=== PATIENT | male | born 1955 | race African-American/Black ===

== ENCOUNTER 2017-02-04 14:39 | Emergency (ER) | payer MEDICARE, OTHER ==
[~2017-02-04] VITALS: Ht 185.4 cm; Wt 108.0 kg
[2017-02-04] MEDS ORDERED: AMLODIPINE BESYL5 MG ORAL (14:57)
[2017-02-04] MEDS ORDERED: [UNRECOGNIZED DRUG - OTHER] (14:57)
[2017-02-04] MEDS ORDERED: Norco 7.5mg/325mg tab ORAL ONE (15:30)
--- NOTE | 2017-02-04 16:13 | Emergency Room Report ---
History of Present Illness General Chief Complaint: Lower Extremity Injury Source: Patient Present Illness HPI 61-year-old male presents to the emergency department complaining of 10 out of 10 in severity right knee pain, swelling and tenderness status post mechanical fall yesterday while carrying a heavy table. Patient states that his knee gave out on him causing the fall and then the table fell on top of his knee. Patient denies bruising he reports previous history of his knee intermittently giving out on him in addition to history of arthritis. Patient states the pain is exacerbated upon weight bearing and attempts to walk. Patient denies erythema or increased temperature palpation. He denies open lesions near the knee joint. Denies numbness tingling or loss of sensation or gross motor movements of the extremities, incontinence of bowel or bladder. Denies CP, Palpitations, LOC, AMS, dizziness, Changes in Vision, Sensation, paresthesias, or a sudden severe headache. Allergies: Coded Allergies: No Known Allergies (Unverified , 02/04/17) Patient History Past Medical History: see triage record Past Surgical History: none Pertinent Family History: none Immunizations: UTD Reviewed Nursing Documentation: PMH: Agreed, PSxH: Agreed Nursing Documentation-PMH Hx Hypertension: Yes Hx Neurological Problems: Yes - Parkinson's Review of Systems All Other Systems: negative except mentioned in HPI Physical Exam Vital Signs Date Time Temp Pulse Resp B/P Pulse Ox O2 Delivery O2 Flow Rate FiO2 02/04/17 14:50 98.2 99 18 138/88 95 Room Air Sp02 EP Interpretation: reviewed, normal General Appearance: no apparent distress, alert, GCS 15, non-toxic Head: normocephalic, atraumatic Eyes: bilateral eye PERRL, bilateral eye normal inspection ENT: hearing grossly normal, normal pharynx, no angioedema, normal voice Neck: full range of motion, supple/symm/no masses Respiratory: lungs clear, normal breath sounds, speaking full sentences Cardiovascular #1: regular rate, rhythm, no edema, normal capillary refill Musculoskeletal: back normal, gait/station normal, normal range of motion, non- tender, no calf tenderness, tender - TTP to the anteriolateral aspect of the right knee, appreciable swelling, no significant increase in laxity to valgus and varus stressing, negative ant. and post. drawer signs, no erythema, no increased temperature to palpation. Neurologic: alert, oriented x3, responsive, motor strength/tone normal, sensory intact, speech normal Psychiatric: judgement/insight normal, memory normal, mood/affect normal Skin: normal color, no rash, warm/dry, well hydrated Medical Decision Making PA Attestation Dr Houser is my supervising Physician whom patient management has been discussed with. Diagnostic Impression: Primary Impression: Knee effusion, right Additional Impression: Left knee sprain Qualified Codes: S83.92XA - Sprain of unspecified site of left knee, initial encounter ER Course 61-year-old male presents to the emergency department complaining of 10 out of 10 in severity right knee pain, swelling and tenderness status post mechanical fall yesterday while carrying a heavy table. Patient states that his knee gave out on him causing the fall and then the table fell on top of his knee. Patient denies bruising he reports previous history of his knee intermittently giving out on him in addition to history of arthritis. Patient states the pain is exacerbated upon weight bearing and attempts to walk. Patient denies erythema or increased temperature palpation. He denies open lesions near the knee joint. Denies numbness tingling or loss of sensation or gross motor movements of the extremities, incontinence of bowel or bladder. Denies CP, Palpitations, LOC, AMS, dizziness, Changes in Vision, Sensation, paresthesias, or a sudden severe headache. Ddx considered but are not limited to Fracture, dislocation, contusion, Sprain/ Strain/Spasm, knee effusion, ligamental injury. Vital signs: are WNL, pt. is afebrile H&PE are most consistent with musculoskeletal injury will perform imaging to r/ o fractures/dislocations. ORDERS: - X-ray3 views - negative for fx, Dislocation, or significant soft tissue injury, per preliminary read in ED by Dr. Eldridge - interpretation is scribed by PA. ED INTERVENTIONS: - [place] PO -Right knee immobilizer applied by technology consultant. Pt. remains neurovascularly intact. -Pt is provided with a pair of crutches. Given that this patient reports a history of previous episodes of his knee giving out and feeling is stable for this patient would benefit from being placed into a knee immobilizer and having further evaluation for his symptoms. I do not suspect an emergent condition at this time and this patient is stable for close outpatient followup. DISCHARGE: At this time pt. is stable for d/c to home. Will provide printed patient care instructions, and any necessary prescriptions. Care plan and follow up instructions have been discussed with the patient prior to discharge. Last Vital Signs Date Time Temp Pulse Resp B/P Pulse Ox O2 Delivery O2 Flow Rate FiO2 02/04/17 16:00 98.3 02/04/17 14:50 99 18 138/88 95 Room Air Disposition: HOME, SELF-CARE Condition: Stable Scripts Ibuprofen* (MOTRIN*) 400 Mg Tablet 400 MG ORAL THREE TIMES A DAY, #20 TAB 0 Refills Prov: Connie Wallace 02/04/17 Hydrocodone Bit/Acetaminophen 5-325* (NORCO 5-325*) 1 Each Tablet 1 TAB ORAL Q6H Y for For Pain, #9 TAB 0 Refills Prov: Connie Wallace 02/04/17 Patient Instructions: Knee Effusion, [id number] Additional Instructions: Take medications as directed. Follow up with a Primary Care Provider in 3-5 days, even if your symptoms have resolved. --Please review list of primary care clinics, if you do not already have a primary care provider Return sooner to ED if new symptoms occur, or current symptoms become worse. Do not drink alcohol, drive, or operate heavy machinery while taking [place] as this may cause drowsiness. - Please note that this Emergency Department Report was dictated using [employer] technology software, occasionally this can lead to erroneous entry secondary to interpretation by the dictation equipment. Connie Wallace Feb 04, 2017 16:13
[2017-02-04] MEDS ORDERED: IBUPROFEN400 MG ORAL (16:18)
[2017-02-04] MEDS ORDERED: NORCO 5-325 TA1 EACH ORAL (16:18)
[2017-02-04 17:02] VITALS: BP 126/81
--- NOTE | 2017-02-05 14:20 | Diagnostic Imaging Report ---
Indication: PAIN Technique: 3 views of the right knee Comparison: None Findings:There is mild medial and lateral compartmental degenerative joint space narrowing. There are lateral osteophytes. There is extensive degenerative change of the patellofemoral joint, with articular surface and traction osteophytes as well as suggestion of degenerative narrowing. No suprapatellar effusion. No acute fractures. No dislocations. Impression:Degenerative changes, as described. No acute bony trauma This agrees with the preliminary interpretation provided by the emergency room physician
== END 2017-02-04 17:02 | disposition home or self-care (01) ==
LOC: EMR 15:10
DX: M25.461 Effusion, right knee (principal); I10 Essential (primary) hypertension; G20 Parkinson's disease; S83.92XA Sprain of unspecified site of left knee, initial encounter; W01.0XXA Fall on same level from slipping, tripping and stumbling without subsequent striking against object, initial encounter; Y93.9 Activity, unspecified; Y92.9 Unspecified place or not applicable
CPT/HCPCS: 29530; 99284

== ENCOUNTER 2020-01-15 08:29 | Emergency (ER) | payer MEDICARE, OTHER ==
[~2020-01-15] VITALS: Ht 182.9 cm; Wt 106.6 kg
[~2020-01-15 08:29] MED LIST: AMLODIPINE BESYL5 MG ORAL; IBUPROFEN400 MG ORAL; NORCO 5-325 TA1 EACH ORAL; [UNRECOGNIZED DRUG - OTHER]
[2020-01-15 08:35] VITALS: BP 138/89
--- NOTE | 2020-01-15 09:01 | Emergency Room Report ---
History of Present Illness General Chief Complaint: Earache Source: Patient Present Illness HPI Patient presents with 3 days of left ear pain. He was cleaning it aggressively before the pain started. He denies any change in his hearing. He also denies any drainage. He rates pain 9/10 at this time. Pressure and aching. He has had a slight runny nose. Denies any cough, fevers, nausea, vomiting, diarrhea, dysuria. The patient had this problem once before and he got better with eardrops. He reports the pain is 9/10, aching and some pressure. It does not radiate. The patient does smoke cigarettes. Patient also complains about swelling in the left side of his gum. He does have plates. Denies any trauma. Allergies: Coded Allergies: No Known Allergies (Unverified , 02/04/17) COVID-19 Screening Contact w/high risk pt: No Recent Travel to affected area: No Experienced COVID-19 symptoms?: Yes COVID-19 symptoms experienced: Runny Nose COVID-19 Testing performed CANCER PROGRAM DIRECTOR: No Patient History Past Medical History: see triage record Social History: Reports: smoking Social History Narrative From home Reviewed Nursing Documentation: PMH: Agreed; PSxH: Agreed Nursing Documentation-PMH Past Medical History: No History, Except For Hx Hypertension: Yes Hx Cancer: Yes - prostate cancer Hx Neurological Problems: Yes - Parkinson's Review of Systems All Other Systems: negative except mentioned in HPI Physical Exam Vital Signs Date Time Temp Pulse Resp B/P (MAP) Pulse Ox O2 Delivery O2 Flow Rate FiO2 01/15/20 08:35 98.2 108 16 138/89 (105) 95 Room Air Sp02 EP Interpretation: reviewed, normal General Appearance: well appearing, no apparent distress, GCS 15, non-toxic Head: normocephalic, other - No mastoid tenderness Eyes: bilateral eye normal inspection, bilateral eye PERRL, bilateral eye EOMI ENT: moist mucus membranes, other - Swelling left gum no evidence of abscess, bilateral TMs normal, canal with mild erythema and some pinna tenderness Neck: full range of motion, supple Respiratory: normal inspection Cardiovascular #1: regular rate, rhythm Cardiovascular #2: 2+ radial (L) Gastrointestinal: normal inspection Musculoskeletal: gait/station normal Neurologic: alert, grossly normal Psychiatric: mood/affect normal Skin: no rash Medical Decision Making Diagnostic Impression: Primary Impression: Left otitis externa Qualified Codes: H60.502 - Unspecified acute noninfective otitis externa, left ear Additional Impression: Gingivitis ER Course Patient presents with left ear pain and gum swelling. Differential includes otitis media, otitis externa, left eardrum perforation amongst others. The diagnosis of the gum swelling is fairly straightforward suggesting an infection. If the swelling persists the patient was told that he would need to have reevaluation by dentist. Eardrops and oral antibiotics for the gum infection are indicated. In addition the patient is treated with Motrin here. Patient advised to stop smoking. Patient stable for outpatient observation and treatment. Last Vital Signs Date Time Temp Pulse Resp B/P (MAP) Pulse Ox O2 Delivery O2 Flow Rate FiO2 01/15/20 09:37 98.5 100 15 132/84 98 Room Air Status: improved Disposition: HOME, SELF-CARE Condition: Improved Scripts Acetaminophen (Tylenol) 325 Mg Tablet 650 MG ORAL Q6H PRN for Prn Pain/Headache/Temp > 101, #20 TAB 0 Refills Prov: Yonis Schmid MD 01/15/20 Amoxicillin* (AMOXIL*) 500 Mg Capsule 500 MG ORAL THREE TIMES A DAY, #21 CAP Prov: Yonis Schmid MD 01/15/20 Neomycin/Polymyxin B Sulf/Hc* (CORTISPORIN EAR SOLUTION*) 10 Ml Solution 3 DROP LEFT EAR QID, #10 ML 0 Refills Prov: Yonis Schmid MD 01/15/20 Yonis Schmid MD Jan 15, 2020 09:01
[2020-01-15] MEDS ORDERED: TYLENOL325 MG ORAL (09:04)
[2020-01-15] MEDS ORDERED: CORTISPORIN EAR10 ML LEFT EAR (09:04)
[2020-01-15] MEDS ORDERED: AMOXICILLIN500 MG ORAL (09:04)
[2020-01-15 09:37] VITALS: BP 132/84
== END 2020-01-15 09:37 | disposition home or self-care (01) ==
LOC: EMR 09:25
DX: H60.502 Unspecified acute noninfective otitis externa, left ear (principal); K05.10 Chronic gingivitis, plaque induced; Z85.46 Personal history of malignant neoplasm of prostate; G20 Parkinson's disease; F17.200 Nicotine dependence, unspecified, uncomplicated
CPT/HCPCS: 99282